=== PATIENT | male | born 1960 | race Caucasian/White ===

== ENCOUNTER → 2019-10-07 06:31 | Day surgery (SDC) | payer BC, SELFPAY | PROVIDERS: Visit Provider Surgery | DX: Z12.11 Encounter for screening for malignant neoplasm of colon (principal); D12.8 Benign neoplasm of rectum | CPT/HCPCS: 45380; 812; 88305; J2704; J7120 ==

== ENCOUNTER 2019-12-03 10:27 | Outpatient (CLI) | payer BC, SELFPAY ==
--- NOTE | ~2019-12-03 | XR_ITS ---
EXAMINATION: XR shoulder RT min 2V DATE: 12/03/2019 10:50 INDICATION: Right shoulder pain. TECHNIQUE: 4 views of right shoulder were obtained. COMPARISON: Chest 2 views 08/14/2019 FINDINGS: Bone alignment is normal. No fracture. There is mild osteoarthritis of glenohumeral joint a nd acromioclavicular joint. Calcified right lung nodules and calcified right hilar lymph nodes are co nsistent with old granulomatous disease. IMPRESSION: 1. Mild polyarticular osteoarthritis. Reviewed, dictated and finalized at location A. ECTION WARDEN
== END 2019-12-03 10:28 | disposition home or self-care (01) ==
LOC: CHSIMG 10:29
PROVIDERS: PCP Internal Medicine; Visit Provider Internal Medicine
DX: M25.511 Pain in right shoulder (principal)
CPT/HCPCS: 73030

== ENCOUNTER 2020-02-11 08:36 | Outpatient (CLI) | payer BC, SELFPAY ==
[2020-02-11 08:53] LABS: Add Urine Microscopic? YES; Appearance Urine Clear (Clear); Basophils Absolute Auto 0.07 K/mm3 (0.00-0.10); Basophils Percent Auto 1.1 % (0.0-1.0); Bilirubin Urine Negative (Negative); Blood Urine Negative (Negative); Color Urine Yellow (Yellow); Eosinophils Absolute Auto 0.08 K/mm3 (0.02-0.50); Eosinophils Percent Auto 1.3 % (1.0-6.0); Glucose Urine UA Negative (Negative); Hematocrit 45.2 % (40.0-54.0); Hemoglobin 15.3 g/dL (14.0-18.0); Immature Granulocyte Absolute 0.04 K/mm3 (0.00-0.00); Immature Granulocyte Percent A 0.6 % (0.0-0.0); Ketones Urine Negative (Negative); Leukocyte Esterase Ur Negative LEU/UL (Negative); Lymphocytes Absolute Auto 2.24 K/mm3 (1.10-4.50); Lymphocytes Percent Auto 35.1 % (18.0-42.0); Mean Corpuscular HGB Conc 33.8 g/dL (32.0-36.0); Mean Corpuscular Hemoglobin 29.9 pg (27.0-31.0); Mean Corpuscular Volume 88.3 fL (78.0-102.0); Mean Platelet Volume 11.9 fl (8.7-11.0); Monocytes Absolute Auto 0.62 K/mm3 (0.10-0.90); Monocytes Percent Auto 9.7 % (2.0-11.0); Neutrophils Absolute Auto 3.3 K/mm3 (1.7-7.2); Neutrophils Percent Auto 52.2 % (50.0-70.0); Nitrate Urine Negative (Negative); Platelet Count Result 226 K/mm3 (150-420); Protein Urine Negative (Negative); Red Blood Count 5.12 M/mm3 (4.70-6.10); Red Cell Distribution Width 12.8 % (11.6-14.4); White Blood Count 6.4 K/mm3 (4.8-10.8); pH Urine 6.5 (5.0-8.0)
[2020-02-11 08:57] LABS: RBC Urine 0-2 /hpf (0-2); WBC Urine 0-3 /hpf (0-3)
[2020-02-11 08:58] LABS: Bacteria Urine Trace /hpf; Mucus Urine Moderate /lpf
[2020-02-11 09:02] LABS: Hemoglobin A1C 5.8 % (<5.7)
[2020-02-11 09:03] LABS: MALB Creatinine Ratio 3.9 mg/g (0-30); Microalbumin Urine Random 10.5 mg/L
[2020-02-11 10:08] LABS: Alanine Aminotransferase 36 U/L (16-63); Albumin Level 3.8 g/dL (3.4-5.0); Alkaline Phosphatase 57 U/L (46-116); Anion Gap 12.4 mmol/L (7-16); Aspartate Amino Transferase 21 U/L (15-37); Bilirubin,Total 0.8 mg/dL (0.00-1.00); Blood Urea Nitrogen 17 mg/dL (7-18); Calcium 9.2 mg/dL (8.5-10.1); Carbon Dioxide 31 mmol/L (21-32); Chloride 104 mmol/L (98-108); Cholesterol 136 mg/dL (0-200); Creatine Kinase 112 U/L (39-308); Estimated Glomerular Filt Rate > 60; Glucose 86 mg/dL (70-99); HDL Direct 28 mg/dL (40-60); LDL Cholesterol Calculated 88 mg/dL (<130); Osmolality Calculated 296 mOsm/kg (285-295); Potassium 4.4 mmol/L (3.5-5.1); Prostate Specific Antigen 1.6 ng/mL (< OR = 4.0); Sodium 143 mmol/L (136-145); Total Protein 7.4 g/dL (6.4-8.2); Triglycerides 99 mg/dL (0-150); Uric Acid 7.2 mg/dL (3.5-7.2)
== END 2020-02-11 08:37 | disposition home or self-care (01) ==
PROVIDERS: PCP Internal Medicine; Visit Provider Internal Medicine
DX: Z00.00 Encounter for general adult medical examination without abnormal findings (principal); Z12.5 Encounter for screening for malignant neoplasm of prostate; R73.01 Impaired fasting glucose; E78.5 Hyperlipidemia, unspecified; E79.0 Hyperuricemia without signs of inflammatory arthritis and tophaceous disease
CPT/HCPCS: 36415; 80053; 80061; 81001; 82043; 82550; 83036; 84153; 84550; 85025; G0103

== ENCOUNTER 2020-02-26 10:10 | Outpatient (CLI) | payer BC, SELFPAY ==
--- NOTE | ~2020-02-26 | MR_ITS ---
EXAMINATION: MR shoulder RT wo con DATE: 02/26/2020 11:41 INDICATION: Right shoulder pain. TECHNIQUE: Magnetic resonance imaging (MRI) of the right shoulder was performed without intravenous c ontrast. Sequences included axial PD-weighted FS FSE, coronal oblique PD-weighted FS FSE and T2-weigh anisa FS FSE, and sagittal oblique T2-weighted FS FSE and T1-weighted FSE. COMPARISON: Right shoulder radiographs 12/03/2019 FINDINGS: Coracoacromial arch: The acromion undersurface is curved in morphology (type II). There is mild acromioclavicular joint os teoarthritis. No subacromial/subdeltoid bursitis. Rotator cuff: There is moderate tendinopathy of the conjoined portion of the supraspinatus and infraspinatus tendon s. Teres minor tendon is normal. There is mild subscapularis tendinopathy. There is no asymmetric fat ty atrophy of the rotator cuff muscle bellies. Biceps tendon and glenoid labrum: Biceps tendon is in bicipital groove. There is moderate intra-articular biceps tendinopathy. There is a degenerative tear of the superior labrum (type I SLAP tear). Fluid: There is no glenohumeral joint effusion. Bones/cartilage: There is deep partial thickness cartilage loss of humeral head superomedially. There is partial-thick ness cartilage loss of glenoid, worst at the central and posterior articular surface where there is m ild subchondral edema-like marrow signal intensity and cortical irregularity. IMPRESSION: 1. Moderate rotator cuff tendinopathy. No tear. 2. Moderate glenohumeral joint chondrosis. 3. Mild acromioclavicular joint osteoarthritis. 4. Moderate intra-articular biceps tendinopathy. Reviewed, dictated and finalized at location E.
== END 2020-02-26 10:11 | disposition home or self-care (01) ==
LOC: CHSIMG 10:10
PROVIDERS: PCP Internal Medicine; Visit Provider Internal Medicine
DX: M25.511 Pain in right shoulder (principal)
CPT/HCPCS: 73221

== ENCOUNTER 2020-03-27 14:45 | Outpatient (RCR) | payer BC, SELFPAY ==
--- NOTE | 2020-03-27 16:23 | PTOPEVAL ---
Thank you for referring Nir Giron to [facility]. Please review, sign, date and return this plan of care JENNIFER. I agree with and certify that the following plan of care is medically necessary. Referring Physician Date Admitting Provider: Attending Provider: Javier Goldstein MD Referring Provider: *PT Outpatient Evaluation Start: 03/27/20 14:46 Freq: Status: Active Protocol: Document 03/27/20 14:46 ARCELIA (Rec: 03/27/20 15:25 ARCELIA [email or web address]) Therapy Assessment Status Assessment Status Assessment Status Evaluation Evaluation Information Problem Diagnosis right shoulder pain/RC tendonitis Onset 12/26/19 Additional Evaluation Detail Quick DASH=24 Subjective Information Pt. reports that he woke up 3- Query Text:As Reported By Patient/ 4 months ago and could not Family lift his arm. He reports that he had MRI and revealed severe wear and tear in the shoulder. 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 He states that his pain is located in the lateral brachial region. He reports that pain is decreased since he recieved injection. Prior Level of Function Activity Level (Last 3 Months) Occupation heavy truck technician Hand Dominance Right Activity of Daily Living Ability Independent Indoor/Home Mobility Independent Community Mobility Independent Stairs Ability Independent Functional Cognition (Planning, Shopping Independent , Taking Medications) Cooking Yes Cleaning Yes Laundry Yes Shopping Yes Driving Yes Pain Assessment Pain Scale Pain Scale Used Numeric (1 - 10) Self Report Pain Assessment Right Shoulder(s) Reported Pain Level 10 Pain Description Aching Pain Frequency Intermittent Lowest Pain Intensity 0 Greatest Pain Intensity 10 Pain Score Pain Score 10: Self Report Upper Extremity Range of Motion General Upper Extremity Range of Motion Gross Upper Extremity Range of Motion right shoulder flexion AROM Comments 100 degrees right shoulder flexion PROM 110 degrees right shoulder ER PROM
== END 2020-03-27 23:59 | disposition home or self-care (01) ==
LOC: CHSPT 14:45
PROVIDERS: PCP Internal Medicine; Visit Provider Internal Medicine
DX: M25.511 Pain in right shoulder (principal)
CPT/HCPCS: 97014; 97110; 97161; G0283

== ENCOUNTER 2020-07-21 15:01 | Outpatient (CLI) | payer BC, SELFPAY ==
[2020-07-24 11:41] LABS: SARS-CoV-2 RNA PCR Negative
== END 2020-07-21 15:02 | disposition home or self-care (01) ==
LOC: CHSLAB 15:06
PROVIDERS: PCP Internal Medicine; Visit Provider Internal Medicine
DX: R05 Cough (principal); J02.9 Acute pharyngitis, unspecified; Z20.828 Contact with and (suspected) exposure to other viral communicable diseases
CPT/HCPCS: 87635; C9803; U0003

== ENCOUNTER 2020-08-30 08:46 | Outpatient (CLI) | payer BC, SELFPAY ==
[2020-08-30 09:36] LABS: SARS-CoV-2 Ag Positive (Negative)
== END 2020-08-30 08:47 | disposition home or self-care (01) ==
LOC: CHSLAB 08:48
PROVIDERS: PCP Internal Medicine; Visit Provider Internal Medicine
DX: U07.1 COVID-19 (principal); R50.9 Fever, unspecified; R05 Cough
CPT/HCPCS: 87426

== ENCOUNTER 2020-10-03 09:04 | Outpatient (CLI) | payer BC, SELFPAY ==
[2020-10-03 09:17] LABS: Add Urine Microscopic? NO; Appearance Urine Clear (Clear); Basophils Absolute Auto 0.04 K/mm3 (0.00-0.10); Basophils Percent Auto 0.7 % (0.0-1.0); Bilirubin Urine Negative (Negative); Blood Urine Negative (Negative); Color Urine Yellow (Yellow); Eosinophils Absolute Auto 0.09 K/mm3 (0.02-0.50); Eosinophils Percent Auto 1.5 % (1.0-6.0); Glucose Urine UA Negative (Negative); Hematocrit 44.6 % (40.0-54.0); Hemoglobin 14.5 g/dL (14.0-18.0); Immature Granulocyte Absolute 0.04 K/mm3 (0.00-0.00); Immature Granulocyte Percent A 0.7 % (0.0-0.0); Ketones Urine Negative (Negative); Leukocyte Esterase Ur Negative LEU/UL (Negative); Lymphocytes Absolute Auto 1.92 K/mm3 (1.10-4.50); Lymphocytes Percent Auto 32.2 % (18.0-42.0); Mean Corpuscular HGB Conc 32.5 g/dL (32.0-36.0); Mean Corpuscular Volume 89.2 fL (78.0-102.0); Mean Platelet Volume 11.4 fl (8.7-11.0); Monocytes Absolute Auto 0.61 K/mm3 (0.10-0.90); Monocytes Percent Auto 10.2 % (2.0-11.0); Neutrophils Absolute Auto 3.3 K/mm3 (1.7-7.2); Neutrophils Percent Auto 54.7 % (50.0-70.0); Nitrate Urine Negative (Negative); Platelet Count Result 218 K/mm3 (150-420); Protein Urine Negative (Negative); Red Cell Distribution Width 12.9 % (11.6-14.4); Specific Grav Ur >= 1.030 (1.010-1.020); pH Urine 5.5 (5.0-8.0)
[2020-10-03 09:40] LABS: Hemoglobin A1C 5.6 % (<5.7)
[2020-10-03 09:56] LABS: Alanine Aminotransferase 33 U/L (16-63); Albumin Level 3.5 g/dL (3.4-5.0); Alkaline Phosphatase 63 U/L (46-116); Anion Gap 7 mmol/L (8-16); Aspartate Amino Transferase 18 U/L (15-37); Bilirubin,Total 0.3 mg/dL (0.00-1.00); Blood Urea Nitrogen 18 mg/dL (7-18); Calcium 8.7 mg/dL (8.5-10.1); Carbon Dioxide 28 mmol/L (21-32); Chloride 104 mmol/L (98-108); Cholesterol 151 mg/dL (0-200); Creatine Kinase 137 U/L (39-308); Estimated Glomerular Filt Rate > 60; Glucose 102 mg/dL (70-99); HDL Direct 27 mg/dL (40-60); LDL Cholesterol Calculated 79 mg/dL (<130); Osmolality Calculated 289 mOsm/kg (285-295); Potassium 4.5 mmol/L (3.5-5.1); Sodium 139 mmol/L (136-145); Total Protein 7.4 g/dL (6.4-8.2); Triglycerides 225 mg/dL (0-150)
== END 2020-10-03 09:05 | disposition home or self-care (01) ==
LOC: CHSLAB 09:06
PROVIDERS: PCP Internal Medicine; Visit Provider Internal Medicine
DX: E78.5 Hyperlipidemia, unspecified (principal); I10 Essential (primary) hypertension; E79.0 Hyperuricemia without signs of inflammatory arthritis and tophaceous disease; R73.01 Impaired fasting glucose
CPT/HCPCS: 36415; 80053; 80061; 81003; 82550; 83036; 85025

== ENCOUNTER 2021-03-24 09:52 | Outpatient (CLI) | payer BC, SELFPAY ==
[2021-03-24 10:07] LABS: Add Urine Microscopic? NO; Appearance Urine Clear (Clear); Bilirubin Urine Negative (Negative); Blood Urine Negative (Negative); Color Urine Yellow (Yellow); Glucose Urine UA Negative (Negative); Ketones Urine Negative (Negative); Leukocyte Esterase Ur Negative (Negative); Nitrate Urine Negative (Negative); Protein Urine Negative (Negative); Specific Grav Ur >= 1.030 (1.010-1.020); Urobilinogen Urine 0.2 mg/dL (0.2-1.0)
[2021-03-24 10:47] LABS: Hemoglobin A1C 5.8 % (<5.7)
[2021-03-24 11:31] LABS: Alanine Aminotransferase 33 U/L (16-63); Albumin Level 3.6 g/dL (3.4-5.0); Alkaline Phosphatase 52 U/L (46-116); Anion Gap 10 mmol/L (8-16); Aspartate Amino Transferase 17 U/L (15-37); Bilirubin,Total 0.9 mg/dL (0.00-1.00); Blood Urea Nitrogen 18 mg/dL (7-18); Calcium 9.1 mg/dL (8.5-10.1); Carbon Dioxide 27 mmol/L (21-32); Chloride 104 mmol/L (98-108); Cholesterol 143 mg/dL (0-200); Creatine Kinase 100 U/L (39-308); Estimated Glomerular Filt Rate > 60; Glucose 93 mg/dL (70-99); HDL Direct 33 mg/dL (40-60); LDL Cholesterol Calculated 93 mg/dL (<130); Osmolality Calculated 293 mOsm/kg (285-295); Potassium 4.6 mmol/L (3.5-5.1); Prostate Specific Antigen 1.2 ng/mL (< OR = 4.0); Sodium 141 mmol/L (136-145); Total Protein 7.4 g/dL (6.4-8.2); Triglycerides 85 mg/dL (0-150)
== END 2021-03-24 09:53 | disposition home or self-care (01) ==
LOC: CHSLAB 09:55
PROVIDERS: PCP Internal Medicine; Visit Provider Internal Medicine
DX: E78.2 Mixed hyperlipidemia (principal); I10 Essential (primary) hypertension; R73.01 Impaired fasting glucose; Z12.5 Encounter for screening for malignant neoplasm of prostate
CPT/HCPCS: 36415; 80053; 80061; 81003; 82550; 83036; 84153; G0103

== ENCOUNTER 2021-10-13 08:10 | Outpatient (CLI) | payer BC, SELFPAY ==
[2021-10-13 08:29] LABS: Add Urine Microscopic? NO; Appearance Urine Clear (Clear); Bilirubin Urine Negative (Negative); Blood Urine Negative (Negative); Color Urine Yellow (Yellow); Glucose Urine UA Negative (Negative); Ketones Urine Negative (Negative); Leukocyte Esterase Ur Negative (Negative); Nitrate Urine Negative (Negative); Protein Urine Negative (Negative); Urobilinogen Urine 0.2 mg/dL (0.2-1.0); pH Urine 6.5 (5.0-8.0)
[2021-10-13 09:13] LABS: Alanine Aminotransferase 38 U/L (16-63); Albumin Level 3.6 g/dL (3.4-5.0); Alkaline Phosphatase 54 U/L (46-116); Anion Gap 8 mmol/L (8-16); Aspartate Amino Transferase 21 U/L (15-37); Blood Urea Nitrogen 9 mg/dL (7-18); Calcium 9.1 mg/dL (8.5-10.1); Carbon Dioxide 30 mmol/L (21-32); Chloride 103 mmol/L (98-108); Cholesterol 132 mg/dL (0-200); Creatine Kinase 123 U/L (39-308); Estimated Glomerular Filt Rate > 60; Glucose 92 mg/dL (70-99); HDL Direct 32 mg/dL (40-60); LDL Cholesterol Calculated 84 mg/dL (<130); Osmolality Calculated 290 mOsm/kg (285-295); Potassium 4.6 mmol/L (3.5-5.1); Sodium 141 mmol/L (136-145); Total Protein 7.4 g/dL (6.4-8.2); Triglycerides 81 mg/dL (0-150)
[2021-10-13 09:15] LABS: Hemoglobin A1C 5.7 % (<5.7)
== END 2021-10-13 08:11 | disposition home or self-care (01) ==
LOC: CHSLAB 08:13
PROVIDERS: PCP Internal Medicine; Visit Provider Internal Medicine
DX: E78.2 Mixed hyperlipidemia (principal); I10 Essential (primary) hypertension; R73.01 Impaired fasting glucose
CPT/HCPCS: 36415; 80053; 80061; 81003; 82550; 83036

== ENCOUNTER 2022-02-24 21:18 | Emergency (ER) | payer BC, SELFPAY ==
--- NOTE | ~2022-02-24 | XR_ITS ---
EXAMINATION: XR chest 1V portable DATE: 02/24/2022 22:00 INDICATION: Chest pain. Left arm pain. TECHNIQUE: A single frontal view of the chest was obtained. COMPARISON: Chest 2 views 08/14/2019 FINDINGS: Calcified right lung nodules and calcified right hilar lymph nodes are consistent with old granulomatous disease. No pleural effusion or pneumothorax. The heart size is normal. IMPRESSION: 1. No acute cardiopulmonary disease. Reviewed, dictated and finalized at location A.
[2022-02-24 21:21] VITALS: BP 175/104; PULSE 64; RESP 26; TEMP 36.6; O2SAT 99
--- NOTE | 2022-02-24 21:21 | ECG_ITS ---
Measurements Intervals [place] Rate: 63 P: 50 NJ: 196 QRS: -9 QRSD: 126 T: 76 QT: 424 QTc: 435 Interpretive Statements SINUS RHYTHM SUBTLE ST ELEVATION IN INFERIOR LEADS- CONSIDER ACUTE INJURY SUBLE ST ELEVATION IN ANTEROLATERAL LEADS- CONSIDER ACUTE INJURY BASELINE ARTIFACT- I, II, III, AVR, AVL, AVF, V2, V6 ABNORMAL ECG Electronically Signed On 02-25-2022 8:06:02 CDT by William Samayoa D.O.
[2022-02-24 21:30] VITALS: BP 165/96; PULSE 65; RESP 21; O2SAT 100
--- NOTE | 2022-02-24 21:34 | ED.CHESTPAIN ---
HPI - Chest Pain General Stated Complaint: sweating, chest/arm pain Time Seen by Provider: 02/24/22 21:25 Source: patient History of Present Illness HPI narrative: smoke. 61-year-old male patient arrives to ER accompanied by his with complaints of chest pain that started less than 30 minutes prior to arrival here. Patient states that he had a sedentary day-to-day and started having profuse sweating and needed to have a bowel movement and then experienced pain in the left chest that radiated down the arm. No significant shortness of breath is reported. Patient denies any pain going into neck or jaw or the back. Patient denies any nausea or vomiting. Patient has a significant past medical history of hypertension. He does not Smoke or have any history of known hyperlipidemia. He is not sure about his family history except that his sister recently had MRI needed some stents. Patient is COVID vaccinated. Denies any recent exposure Risk Factors Coronary artery disease risk factors: hypertension Review of Systems Review of Systems: All systems reviewed & are unremarkable except as noted in HPI and below Constitutional: Constitutional: Reports no additional constitutional complaints Cardiovascular: Cardiovascular: Reports chest pain, Denies rapid heart rate and Denies slow heart rate Respiratory: Respiratory: Denies chest congestion, Denies cough, Denies dyspnea and Denies wheezing Gastrointestinal: Gastrointestinal: Denies abdominal pain, Denies nausea and Denies vomiting PMFSH Past Medical History Medical History Hypertension Exam Narrative: Alert male patient who is awake and anxious. He describes his pain at the time of arrival was 10 and now it is down to 7/10 Vital signs on arrival showed a blood pressure of 175/104 and heart rate of 64. SpO2 99% on room air. His current blood pressure is 138/80 and heart rate is 60 beats per minute and SpO2 is 95% and patient is on 2 L of oxygen via nasal cannula. HEENT: normocephalic. Ear nose throat is unremarkable at this time. Neck is supple. No JVD Chest wall is nontender. Breath sounds are audible bilaterally. Heart tones are regular. Abdomen is obese and soft and nontender. Extremities are atraumatic. Patient has no pedal edema. Skin is warm and dry and color is normal. Neurologic exam is grossly normal. Patient is anxious and thought process is normal. Course Course Emergency Course: An EKG obtained confirms an inferior wall MO. Patient has been given 4 baby aspirin tablets orally and as STEMI protocol has been initiated. Patient has also received pantoprazole, nitroglycerin and 2 mg of morphine sulfate for pain. Heparin protocol has been initiated. Patient is discussed with Dr. Bang at 9:37 p.m. and [facility] has been notified to activate STEMI protocol. Arch is expected to be here to transfer the patient to [facility]. [address] here and about transfer the patient over to [facility]. Vital Signs Vital signs: BP 138/80. HR 58. RR22 and SPO2 98% Transfer Transfered to: [facility] Transportation: [facility] and [facility] Transfer rationale: STEMI Inferior Wall MO Accepting physician: DR Bang Transfer comments: STEMI protocol activated MDM - Chest Pain MDM Narrative Medical decision making narrative: Acute Inferior Wall MO Differential Diagnosis Differential diagnosis: Likely stable angina, unstable angina pectoris, atypical chest pain, st elevation myocardial infarction and chest pain Discharge Plan Discharge Clinical Impression: Acute MO, inferior wall, initial episode of care Patient Disposition: Acute Care Hospital Condition: Stable Follow-up/Referrals: Javier Goldstein MD [Primary Care Provider] -
[2022-02-24 21:40] VITALS: PULSE 64; RESP 21; O2SAT 97
[2022-02-24 21:50] VITALS: BP 138/80; PULSE 58; PULSE 59; RESP 16; RESP 18; O2SAT 95; O2SAT 98
[2022-02-24 21:52] LABS: Basophils Percent Auto 0.9 % (0.0-1.0); Eosinophils Absolute Auto 0.16 K/mm3 (0.02-0.50); Eosinophils Percent Auto 1.5 % (1.0-6.0); Hematocrit 45.4 % (40.0-54.0); Hemoglobin 15.1 g/dL (14.0-18.0); Immature Granulocyte Absolute 0.09 K/mm3 (0.00-0.00); Immature Granulocyte Percent A 0.8 % (0.0-0.0); Lymphocytes Absolute Auto 4.35 K/mm3 (1.10-4.50); Lymphocytes Percent Auto 40.7 % (18.0-42.0); Mean Corpuscular HGB Conc 33.3 g/dL (32.0-36.0); Mean Corpuscular Hemoglobin 29.5 pg (27.0-31.0); Mean Corpuscular Volume 88.8 fL (78.0-102.0); Mean Platelet Volume 11.6 fl (8.7-11.0); Monocytes Absolute Auto 1.23 K/mm3 (0.10-0.90); Monocytes Percent Auto 11.5 % (2.0-11.0); Neutrophils Absolute Auto 4.8 K/mm3 (1.7-7.2); Neutrophils Percent Auto 44.6 % (50.0-70.0); Platelet Count Result 245 K/mm3 (150-420); Red Blood Count 5.11 M/mm3 (4.70-6.10); Red Cell Distribution Width 12.8 % (11.6-14.4); White Blood Count 10.7 K/mm3 (4.8-10.8)
[2022-02-24 22:01] LABS: Partial Thromboplastin Time 25.7 SEC (23.90-30.70); Prothrombin Time 10.9 Seconds (9.50-12.10)
[2022-02-24 22:04] LABS: SARS-CoV-2 Ag Negative (Negative)
[2022-02-24 22:12] LABS: Alanine Aminotransferase 42 U/L (16-63); Albumin Level 3.7 g/dL (3.4-5.0); Alkaline Phosphatase 69 U/L (46-116); Anion Gap 7 mmol/L (8-16); Aspartate Amino Transferase 11 U/L (15-37); Bilirubin,Total 0.5 mg/dL (0.00-1.00); Blood Urea Nitrogen 17 mg/dL (7-18); Calcium 8.9 mg/dL (8.5-10.1); Carbon Dioxide 28 mmol/L (21-32); Chloride 101 mmol/L (98-108); Creatine Kinase 97 U/L (39-308); Estimated Glomerular Filt Rate 59; Glucose 111 mg/dL (70-99); Magnesium 2.1 mg/dL (1.8-2.4); Osmolality Calculated 284 mOsm/kg (285-295); Potassium 3.6 mmol/L (3.5-5.1); Sodium 136 mmol/L (136-145); Total Protein 7.9 g/dL (6.4-8.2); Troponin I 37.2 ng/L (0.00-60.4)
--- NOTE | 2022-02-24 22:44 | PC.NURSE ---
For medications and times see STAT heart paperwork.
== END 2022-02-24 22:07 | disposition short-term general hospital (02) ==
PROVIDERS: Emergency Provider Emergency Medicine; PCP Internal Medicine
DX: I21.19 ST elevation (STEMI) myocardial infarction involving other coronary artery of inferior wall (principal); I10 Essential (primary) hypertension; Z20.822 Contact with and (suspected) exposure to COVID-19
CPT/HCPCS: 36415; 71045; 80053; 82550; 82553; 83735; 84484; 85025; 85610; 85730; 87426; 93005; 96374; 99285; A9270; C9803; J1644; J2270

== ENCOUNTER 2022-02-24 23:18 | Inpatient (IN) | payer BC, SELFPAY ==
[2022-02-24 23:17] VITALS: BMI 37.8
--- NOTE | 2022-02-24 23:26 | P.PCNCC_ITS ---
Cardiac Cath Procedure Note Date of procedure:: 02/24/22 Performing physician:: Tiago Rios MD Indication:: chest pain/ST-elevation OH Brief clinical history:: this is a 61-year-old patient with hypertension and no prior history of cardiac disease who is transfer from an outlying emergency room where ST segment elevation OH was declared by ECG. Procedure Procedure performed:: Emergency coronary angiogram left ventriculogram Sedation/Medication given:: no additional sedation Access site:: right femoral artery Estimated blood loss:: 20 cc Procedure note:: patient was brought to the cardiac cardiac cath lab radiology technologist in the emergent setting described above. He was extraordinarily anxious somewhat agitated. The right femoral triangle was prepped and draped in usual fashion anesthesia was given 1% lidocaine infiltrated locally using the modified Seldinger technique a 6 Mongolian sheath was placed into the femoral artery. I then used a 5 Mongolian FL4 catheter to engage and inject the left coronary artery in multiple projections. I then used a 5 Mongolian JR4 catheter to engage and inject the right coronary artery. The cineangiograms were then reviewed. No coronary lesions were identified. I then used a 5 Mongolian angled pigtail catheter to measure left- sided hemodynamics and to inject LV g in the 30 degree [place] projection. Following this the case was terminated and the patient was taken to the ICU for post cath recovery. The sheath was sutured in event position it will be with direct manual pressure in the intensive care unit. Findings:: Hemodynamics: Central aortic pressure is 1 30 over 60 left ventricle 130/0 end-diastolic 16. No gradient was seen a pullback across the aortic valve. Left ventricle: The apical portion of the inferior wall appears to be akinetic the remainder of the ventricle contracts well the global ejection fraction is visually estimated to be 45-50%. The left main coronary is widely patent the left anterior descending is moderate caliber artery proximally after the midportion down to the apex it becomes very small in caliber but of entire vessel appears to be angiographically normal. Circumflex system is moderate in caliber giving rise to 1 large marginal branch. The circumflex is angiographically unremarkable. The right coronary artery is large in caliber and dominant to the posterior circulation the right coronary artery is smooth and angiographically free of disease. Conclusion:: 1. Right coronary dominant circulation with no angiographic abnormalities 2. inferoapical akinesis with chest pain and inferolateral ST segment elevations suggestive of spasm induced myocardial infarction. Overall ejection fraction as described above was 45-50%. Tiago Rios MD FACC
--- NOTE | 2022-02-24 23:34 | P.HP_ITS ---
H&P: HPI History of Present Illness Date/Time: 02/24/22 23:34 Chief Complaint: Chest pain Narrative: this is a 61-year-old patient with prior history of hypertension who is transferred here emergently from [place] is a emergency room with declared inferior wall ST-elevation CT. He apparently was working in his kitchen at home and began to experience chest pain while he was chopping some vegetables at about 9:00 a.m. this evening. He went to the emergency room [place] where his ECG was felt to show evidence of a inferior wall ST-elevation CT for that reason was transferred [facility] emergently. He has seen in the laboratory technical specialist is being prepared for emergent angiography. The patient is extraordinarily anxious regarding this procedure. he has no prior history of heart disease from what I am told there was no time to obtain any additional history than this during this emergency Review of Systems Review of Systems: ROS unobtainable: Yes unobtainable due to medical condition PMFSH Past Medical History Medical History Hypertension Meds Home Medications and Allergies Home Medications Medication Instructions Recorded Confirmed Type aspirin [Aspirin Child] 81 mg PO HS 02/24/22 02/24/22 History metoprolol tartrate 100 mg PO DAILY 02/24/22 02/24/22 History Allergies Allergy/AdvReac Type Severity Reaction Status Date / Time No Known Allergies Allergy Verified 02/24/22 22:48 Exam Const: General: in distress and uncomfortable Other: extremely anxious overweight 61-year-old man HENMT: Mouth: Yes moist mucous membranes Eyes: General: appearance normal, both eyes and all related structures Neck: Neck: supple Resp: Effort & Inspection: normal respiratory effort Auscultation: clear to auscultation bilaterally Cardio: Rate: regular rate Rhythm: regular rhythm Other: PMI not palpable no gallop no murmur GI: GI Palp: Yes Soft to palpation Auscultation: normal bowel sounds Skin: General skin exam: normal color Neuro: Cognition (Neuro): normal cognition Extrem: General: normal to inspection Assessment and Plan Additional Plan 61-year-old man with hypertension was experiencing chest pain which has been alleviated with the treatment he received so far which includes aspirin, heparin and IV nitroglycerin. He not experience chest pain any longer. He being a brought to the laboratory technical specialist for emergency angiography in the setting of inferior ST- elevation. Tiago Rios MD [facility]
--- NOTE | 2022-02-24 23:35 | ECG_ITS ---
Measurements Intervals [place] Rate: 56 P: 24 MS: 190 QRS: -35 QRSD: 113 T: 62 QT: 442 QTc: 430 Interpretive Statements SINUS BRADYCARDIA LEFT AXIS DEVIATION MINIMAL Q WAVES- HIGH LATERAL LEADS ST ELEVATION IN INFERIOR LEADS- CONSIDER ACUTE INJURY ST ELEVATION IN ANTEROLATERAL LEADS- CONSIDER ACUTE INJURY ABNORMAL ECG Electronically Signed On 02-25-2022 8:03:54 CDT by William Samayoa D.O.
--- NOTE | 2022-02-24 23:35 | ADMGEN ---
This patient, Nir Giron, was admitted to Intensive Care Unit-4. Patient/family oriented to hospital policies and general routines including ID bracelet, bed and alarms, visiting hours, pain management, procedures, bathroom and other care routines, personal items, smoking policy, room service/diet, and visiting hours. Information on how to activate the Rapid Response Team has been discussed. Patient/Family are encouraged to report perceived risks to care and to ask questions if they do not understand what they are told or what they should do.
[2022-02-25] VITALS (19 sets, daily range): BP systolic 109–198; BP diastolic 63–92; PULSE 51–87; RESP 14–19; TEMP 36.5–36.8; O2SAT 93–100
[2022-02-25 00:28] LABS: Basophils Absolute Auto 0.1 K/mm3 (0.0-0.1); Basophils Percent Auto 0.7 % (0.2-1.2); Eosinophils Absolute Auto 0.1 K/mm3 (0-0.3); Eosinophils Percent Auto 1.1 % (0-4.4); Hematocrit 43.1 % (42.0-52.0); Hemoglobin 14.2 g/dL (14.0-18.0); Immature Granulocyte Absolute 0.05 K/mm3 (0.00-0.031); Immature Granulocyte Percent A 0.6 % (0-0.5); Lymphocytes Absolute Auto 1.57 K/mm3 (0.9-3.2); Lymphocytes Percent Auto 18.4 % (18.3-44.2); Mean Corpuscular HGB Conc 32.9 g/dl (32-36); Mean Corpuscular Hemoglobin 29.4 pg (26-34); Mean Corpuscular Volume 89.2 fl (80-100); Mean Platelet Volume 11.5 fl (7.4-10.4); Monocytes Absolute Auto 0.8 K/mm3 (0.1-0.6); Monocytes Percent Auto 9.2 % (2.6-8.5); Platelet Count Result 203 k/mm3 (150-375); Red Blood Count 4.83 M/mm3 (4.6-6.20); White Blood Count 8.6 K/mm3 (4.5-10.0)
[2022-02-25 00:37] LABS: Anion Gap 10 mmol/L (8-16); Blood Urea Nitrogen 18 mg/dL (9-20); Calcium 8.7 mg/dL (8.4-10.2); Carbon Dioxide 25 mmol/L (22-30); Chloride 101 mmol/L (98-107); Cholesterol 134 mg/dL (0-200); Estimated CRCL calculation 94 ml/min; Estimated Glomerular Filt Rate > 60; Glucose 118 mg/dL (65-110); HDL Direct 24 mg/dL; Potassium 4.3 mmol/L (3.4-5.0); Sodium 136 mmol/L (137-145); Triglycerides 201 mg/dL (<150)
[2022-02-25] MEDS: SODIUM CHLORIDE 0.9% IV 1,000 ML 125 ML IV CONT (00:39)
[2022-02-25] MEDS: NITROGLYCERIN OINTMENT 1 INCH DOSE TRANSDERM ×4 (00:40→23:53)
[2022-02-25 00:48] LABS: LDL Cholesterol Direct 78 mg/dL
[2022-02-25 00:49] LABS: INR 1.2; Prothrombin Time 14.3 Seconds (11.1-14.7)
[2022-02-25 00:56] LABS: Troponin I 0.658 ng/mL (0.000-0.034)
--- NOTE | 2022-02-25 05:11 | ECG_ITS ---
Measurements Intervals [place] Rate: 51 P: 21 TN: 220 QRS: -46 QRSD: 126 T: -1 QT: 455 QTc: 419 Interpretive Statements SINUS BRADYCARDIA WITH FIRST DEGREE AV BLOCK EARLY PRECORDIAL R/S TRANSITION LEFT ANTERIOR FASCICULAR BLOCK MINIMAL Q WAVES- LAT/HIGH LAT LEADS BORDERLINE T WAVE ABNORMALITY- INFERIOR LEADS ABNORMAL ECG Electronically Signed On 02-25-2022 9:42:17 CDT by William Samayoa D.O.
[2022-02-25] MEDS: ASPIRIN 81 MG CHEWABLE TABLET PO (07:17)
[2022-02-25] MEDS: ROSUVASTATIN 10 MG TABLET PO (08:03)
[2022-02-25] MEDS: LOSARTAN POTASSIUM 25 MG TABLET PO (08:03)
--- NOTE | 2022-02-25 12:20 | WPDCNINT ---
Assessment and Plan Assessment and plan (1) Chest pain: Code(s): R07.9 - Chest pain, unspecified Status: Acute Assessment and Plan: Patient presented to outside hospital in [place] with chest pain, radiating to left arm, along with diuresis. No shortness of breaths was mentioned. EKG showed acute inferior ST-elevation myocardial infarction -patient was transferred to [facility] for emergent Angiography -cardiac catheterization did not show any coronary disease, EF was 40-45% -manufacturing worker started could be a coronary spasm -patient is hemodynamically stable, bradycardic -manufacturing worker aware -continue rosuvastatin and aspirin (2) Hypertension: Code(s): I10 - Essential (primary) hypertension Status: Acute Assessment and Plan: Patient is on losartan, -metoprolol which will be held for bradycardia Additional Plan Discussed with patient updated with his condition and plan of care. Discussed with cardiology team, okay to transfer to medical floor with telemetry Code status: Full code Critical care time spent: 42 minutes This dictation may have been done utilizing a voice recognition system. Attempts have been made to correct errors. However, there may be uncorrected grammatical, spelling, and recognition errors present. Due to a high probability of clinically significant, life threatening deterioration, the patient required my highest level of preparedness to intervene emergently and I personally spent this critical care time directly and personally managing the patient. This critical care time included obtaining a history; examining the patient; pulse oximetry; ordering and review of studies; arranging urgent treatment with development of a management plan; evaluation of patient's response to treatment; frequent reassessment; and discussions with other providers. It was exclusive of separately billable procedures and treating other patients and teaching time. Please see Assessment and Plan section and the rest of the note for further information on patient assessment and treatment Grades 7 8 Tutor Consult Note Consult date: 02/25/22 Time Seen: 07:05 Reason for consult: Chest pain, STEMI HPI: Nir Giron is a 61 year old male past medical history of essential hypertension presented the outside hospital ER at [facility] on 02/24/2022 with complains of chest pain, radiated to the arm, diaphoresis. The pain started 30 minutes prior to arriving at the ER. Patient did not have any significant chest pain. EKG showed possible acute inferior myocardial injury and was transferred to [facility] emergently for Angiography. Patient was taken to the cardiac catheterization by his manufacturing worker, patient did not have any significant coronary disease, EF was 45-50%. Fire Coordinator presumed that this could be a coronary artery spasm. Patient was transfer the ICU for further management and monitoring Patient seen and examined this morning, denies any chest pain, shortness of breath, abdominal pain, nausea, vomiting. Patient is hemodynamically stable, bradycardic. Urine output has been adequate. No other issues overnight Review of Systems Review of Systems: All systems reviewed & are unremarkable except as noted in HPI and below PMFSH Past Medical History Medical History Hypertension Family History Family History (Updated 02/25/22 @ 00:10 by Adama Darling RN) Mother Congestive heart failure (CHF) Diabetes mellitus Hypertension Father Lung cancer Sibling Acute leukemia Coronary artery disease Social History Social History Smoking status: Former smoker Alcohol intake: never Substance use: never Spiritual care concerns: No Meds Home Medications and Allergies Home Medications Medication Instructions Recorded Confirmed Type aspirin [Aspirin Child] 81 mg P
--- NOTE | 2022-02-25 14:25 | PC.NURSE ---
This patient, Nir Giron, was transferred to [facility] on 02/25/22 at 1431. Personal belongings sent with patient. Report given to Melisa. Appropriate documentation sent with patient.
--- NOTE | 2022-02-25 14:29 | PC.NURSE ---
Patient transferred from ICU to Room 319 and is in stable condition. is at bedside. Vital signs are stable and patient is not in any distress..
--- NOTE | 2022-02-25 14:38 | PM.PNCARD ---
Progress Note: A&P Assessment and Plan (1) Chest pain: Code(s): R07.9 - Chest pain, unspecified Status: Acute Assessment and Plan: Presented with acute onset of chest pain. He had inferior ST elevations on ECG and was therefore taken emergently to the builder's labourer for coronary angiography. He had no angiographic abnormalities but did have inferoapical akinesis with EF 40-45%. These findings and presentation suggestive of spasm induced MT. He has been placed on medical therapy with ASA, statin, metoprolol. (2) Hypertension: Code(s): I10 - Essential (primary) hypertension Status: Acute Subjective Date/time seen: 02/25/22 14:38 Cardiology follow up for chest pain Feeling well this morning. Has not had any recurrence of chest pain following cath. No palpitations, shortness of breath. No ectopy or arrhythmias on telemetry. Talked to patient and his at length regarding angiogram findings and plan of care. Review of Systems Constitutional: Constitutional: Denies daytime sleepiness, Denies difficulty sleeping, Denies lethargy and Denies weakness Eyes: Eyes: Denies change in vision ENT: Reports Normal hearing present and Denies hearing loss Cardiovascular: Cardiovascular: Reports chest pain at rest, Denies irregular heart rhythm, Denies leg edema, Denies lightheadedness, Denies dyspnea and Denies dyspnea on exertion Respiratory: Respiratory: Denies dyspnea, Denies dyspnea on exertion and Denies wheezing Gastrointestinal: Gastrointestinal: Denies melena and Denies hematochezia Genitourinary: Genitourinary: Denies urinary frequency, Denies urinary hesitancy and Denies urinary urgency Musculoskeletal: Musculoskeletal: Denies back pain, Denies muscle cramps, Denies muscle weakness and Denies neck pain Integumentary/Breasts: Skin/Breast: Denies unusual bruising and Denies wounds Neurologic: Reports Normal hearing present, Denies Neuro-related abnormal movements and Denies Abnormal speech present Psychiatric: Psychiatric: Denies anxiety and Denies depression Endocrine: Endocrine: Denies excessive sweating, Denies fatigue and Denies palpitations Hematologic/Lymphatic: Hematologic/Lymphatic: Denies easy bleeding and Denies easy bruising Allergic/Immunologic: Allergic/Immunologic: Denies lip swelling, Denies throat swelling and Denies tongue swelling Exam Const: General: comfortable, no acute distress, alert and awake Other: HENMT: Head: normal to inspection Ears: hearing grossly normal bilaterally Face and sinus: normal facial exam Mouth: Yes moist mucous membranes Eyes: General: appearance normal, both eyes and all related structures Neck: Neck: supple Resp: Effort & Inspection: normal respiratory effort Auscultation: clear to auscultation bilaterally Cardio: Rate: regular rate Rhythm: regular rhythm Heart sounds: no murmurs Peripheral pulses: Peripheral pulses 2+ throughout GI: Auscultation: normal bowel sounds Skin: General skin exam: normal color Other: Right groin arterial access site free from bleeding, hematoma, bruit. Neuro: General: patient oriented x3 Cognition (Neuro): normal cognition Extrem: General: normal to inspection Psych: Appearance: grossly normal Mental Status: mental status grossly normal Objective Data Vital Signs Vital Signs: Vital Signs - 24 hr 02/25/22 00:00 02/25/22 00:03 02/25/22 00:06 Temperature 36.6 C Pulse Rate 56 L 55 L 87 Respiratory Rate 18 18 18 Blood Pressure 128/92 H 198/82 H Pulse Oximetry 98 93 93 02/25/22 01:00 02/25/22 01:35 02/25/22 02:00 Temperature 36.8 C 36.8 C Pulse Rate 52 L 56 L 56 L Respiratory Rate 18 15 18 Blood Pressure 110/67 120/67 111/67 Pulse Oximetry 95 96 100 02/25/22 05:11 02/25/22 05:12 02/25/22 06:00 Temperature 36.8 C 36.7 C Pulse Rate 56 L 55 L 53 L Respiratory Rate 16 18 Blood Pressure 113/78 117/71 Pulse Oximetry 98 98 02/25/22 07:00 02/25/22 08:00 02/25/22
[2022-02-26] VITALS: PULSE 62
--- NOTE | 2022-02-26 | ECHO_ITS ---
Patient Info Name: Nir Giron Age: 61 years : 1960 Gender: Male Ht: 73 in Wt: 284 lbs BSA: 2.62 m2 HR: 64 bpm BP: 129 / 83 mmHg Heart Rhythm: Sinus Rhythm Technical Quality: Fair Exam Date: 02/26/2022 2:19 PM Exam Location: [facility] Patient Status: Inpatient Admit Date: 02/24/2022 Staff Ordering Physician: Lupis Timmons Paper Sealer: Isela Anaya RDCS Attending Provider: Tiago Rios MD Referring Physician: Shanelle BECKFORD; Exam Type: CA echo doppler w bubble study Study Info Indications - stemi Complete two-dimentional, color flow and Doppler transthoracic echocardiogram is performed with agitated saline and with contrast to opacify the left ventricle and to improve the delineation of the left ventricle endocardial borders. Contrast/Agitated Saline Contrast/Ag. Saline: Definity Amount: 2.00 ml Administered By: Isela Anaya RDCS Existing IV Access: Yes IV Access Condition: patent with no signs of infiltration Contrast/Ag. Saline: Agitated Saline Amount: 20.00 ml Administered By: Sarah Knox RDCS Existing IV Access: Yes IV Access Condition: patent with no signs of infiltration Summary 1. Left ventricular chamber dimension is normal. 2. Left ventricular systolic function is normal, estimated at 60-65%. 3. There is mildly increased left ventricular wall thickness. 4. Left ventricular septal wall motion is normal. 5. The left ventricular diastolic function is normal. 6. Left atrial chamber dimension is moderately enlarged. 7. There is mild mitral valve regurgitation. 8. There is mild tricuspid valve regurgitation. 9. Mild pulmonary hypertension, estimated pulmonary arterial systolic pressure is 38 mmHg. Left Ventricle Left ventricular chamber dimension is normal. Left ventricular systolic function is normal, estimated at 60-65%. There is mildly increased left ventricular wall thickness. Left ventricular septal wall motion is normal. The left ventricular diastolic function is normal. Right Ventricle Right ventricular chamber dimension is normal. Right ventricular systolic function is normal. Left Atria Left atrial chamber dimension is moderately enlarged. Right Atria Right atrial chamber dimension is normal. Atrial Septum Intact interatrial septum visualized by color flow and agitated saline imaging. Aortic Valve The aortic valve is trileaflet. There is mild aortic valve sclerosis. There is no aortic valve stenosis. There is trace aortic valve regurgitation. Pulmonic Valve The pulmonic valve is normal. There is no pulmonic valve stenosis. There is trace pulmonic regurgitation. Mitral Valve The mitral valve has normal leaflets. There is no mitral valve stenosis. There is mild mitral valve regurgitation. Tricuspid Valve The tricuspid valve leaflets are normal. There is no significant tricuspid valve stenosis. There is mild tricuspid valve regurgitation. Mild pulmonary hypertension, estimated pulmonary arterial systolic pressure is 38 mmHg. Pericardium/Pleural The pericardium appears normal. There is no pericardial effusion. Inferior Vena Cava Normal inferior vena cava with <50% collapse upon inspiration consistent with elevated right atrial pressure, 10 mmHg. Aorta The aortic root size at the sinus of Valsalva is normal. Left Ventricular Outflow
[2022-02-26 04:00] VITALS: PULSE 59
[2022-02-26 06:00] VITALS: BP 129/83; PULSE 64; RESP 20; TEMP 36.1; O2SAT 98
[2022-02-26] MEDS: NITROGLYCERIN OINTMENT 1 INCH DOSE TRANSDERM (06:06)
--- NOTE | 2022-02-26 07:49 | PM.DS ---
DS: Admitting Diagnosis Discharge Date 02/26/2022 Admitting Diagnosis Chest pain DS: Discharge Diagnosis Discharge Diagnosis (1) Chest pain: Code(s): R07.9 - Chest pain, unspecified Status: Acute Assessment and Plan: Presented with acute onset of chest pain with inferior ST elevation on ECG. Taken emergently to the cardiac prosthetics lab technician for coronary angiogram. Coronary angiogram findings are as follows: 1.? Right coronary dominant circulation with no angiographic abnormalities 2. ? Inferolateral akinesis with chest pain and inferolateral ST segment elevations suggestive of spasm induced myocardial infarction.? Overall ejection fraction as described above was 45-50%. Started on ASA, statin and beta carina. Recommend Plavix for one month for the indication of spontaneous thrombus Echo with bubble study to check for PFO Close outpatient follow up (2) Hypertension: Code(s): I10 - Essential (primary) hypertension Status: Acute Assessment and Plan: At goal. DS: Summary Hospital Course Reason for hospitalization: Chest pain Hospital Course: Presented 02/24/2022 with c/o acute onset of chest pain. Inferior ST elevation noted on ECG. Taken emergently to the cardiac prosthetics lab technician for coronary angiogram. Coronary angiogram findings are as follows: 1.? Right coronary dominant circulation with no angiographic abnormalities 2. ? Inferolateral akinesis with chest pain and inferolateral ST segment elevations suggestive of spasm induced myocardial infarction.? Overall ejection fraction as described above was 45-50%. He was placed on medical therapy with ASA, plavix, statin, beta carina. Following his angiogram he did not have any further chest pain. He remained stable and is appropriate for hospital discharge today. Time Spent with Patient Time attestation: Total time spent providing and/or coordinating discharge services: 50 minutes Exam Const: General: comfortable, no acute distress, alert and awake Orientation/consciousness: patient oriented x3 Other: HENMT: Head: normal to inspection Ears: hearing grossly normal bilaterally Face and sinus: normal facial exam Mouth: Yes moist mucous membranes Eyes: General: appearance normal, both eyes and all related structures Neck: Neck: supple Resp: Effort & Inspection: normal respiratory effort Auscultation: clear to auscultation bilaterally Cardio: Rate: regular rate Rhythm: regular rhythm Heart sounds: no murmurs Peripheral pulses: Peripheral pulses 2+ throughout Other: GI: Auscultation: normal bowel sounds Skin: General skin exam: normal color Other: Right groin arterial access site free from bleeding, hematoma, bruit. Neuro: General: patient oriented x3 Cranial nerves: Yes Normal hearing present Cognition (Neuro): normal cognition Speech: No Abnormal speech present Extrem: General: normal to inspection Psych: Appearance: grossly normal Mental Status: mental status grossly normal Discharge Plan Discharge Attending physician on discharge: Deaneglo Paredes Consulting providers: Jose Turner Discharging Clinician: Lupis Timmons Patient Disposition: Home, Self-Care Activity: february shower Diet: heart healthy Discharge Instructions: [facility] [address] [place] [address] DISCHARGE INSTRUCTIONS - POST CARDIAC CATH Activity restrictions 1. No vickiein
[2022-02-26 08:00] VITALS: PULSE 65; RESP 18; O2SAT 96
[2022-02-26] MEDS: ASPIRIN 81 MG CHEWABLE TABLET PO (08:45)
[2022-02-26] MEDS: ROSUVASTATIN 10 MG TABLET PO (08:45)
[2022-02-26] MEDS: LOSARTAN POTASSIUM 25 MG TABLET PO (08:45)
[2022-02-26] MEDS: METOPROLOL TARTRATE 25 MG TABLET PO (08:45)
[2022-02-26 14:14] VITALS: BP 124/64; PULSE 65; RESP 18; TEMP 37.7; O2SAT 96
[2022-02-26] MEDS: PERFLUTREN LIPID MICROSPHERES 1.5 ML VIAL DILUTED TO 10 ML TOTAL VOLUME IV PUSH (14:58)
--- NOTE | 2022-02-26 14:59 | IVDEFINITY ---
Prior to administration of IV Definity the patient was educated on the risks and benefits of the imaging enhancing agent including potential adverse side effects. The patient verbalized understanding. Allergies were verified. No exclusion criteria were identified and at least one of the following inclusion criteria were met: 1) physician request, 2) patient technically difficult to image (per the [place] [employer] guidelines of two or more segments not discernable within the apical view), or 3) questionable left ventricular function. ?
== END 2022-02-26 17:35 | disposition home or self-care (01) | DRG 282 ==
LOC: ANHICU 02-25 05:55 → ANH3MEDSUR 02-26 12:22 → ANHICU 03-01 06:16
PROVIDERS: Admitting Provider Specialist; PCP Internal Medicine; Visit Provider Nurse Practitioner
PROC: 4A023N7 Measurement of Cardiac Sampling and Pressure, Left Heart, Percutaneous Approach (ICD-10-PCS; CPT 93452; principal; 2022-02-24 22:30)
DX: I21.19 ST elevation (STEMI) myocardial infarction involving other coronary artery of inferior wall (principal); I10 Essential (primary) hypertension
CPT/HCPCS: 36415; 80048; 80061; 84484; 85025; 85610; 85730; 93005; 93306; 93458; 96375; A9270; C1887; C1894; J1644; J7030; J7040; Q9957

== ENCOUNTER 2022-02-27 16:13 | Outpatient (CLI) | payer BC, SELFPAY ==
[2022-02-27 16:32] LABS: Basophils Absolute Auto 0.07 K/mm3 (0.00-0.10); Basophils Percent Auto 0.8 % (0.0-1.0); Eosinophils Absolute Auto 0.12 K/mm3 (0.02-0.50); Eosinophils Percent Auto 1.3 % (1.0-6.0); Hematocrit 43.3 % (40.0-54.0); Hemoglobin 14.5 g/dL (14.0-18.0); Immature Granulocyte Absolute 0.06 K/mm3 (0.00-0.00); Immature Granulocyte Percent A 0.6 % (0.0-0.0); Lymphocytes Absolute Auto 2.09 K/mm3 (1.10-4.50); Lymphocytes Percent Auto 22.4 % (18.0-42.0); Mean Corpuscular HGB Conc 33.5 g/dL (32.0-36.0); Mean Corpuscular Hemoglobin 29.4 pg (27.0-31.0); Mean Corpuscular Volume 87.7 fL (78.0-102.0); Mean Platelet Volume 11.6 fl (8.7-11.0); Monocytes Absolute Auto 1.16 K/mm3 (0.10-0.90); Monocytes Percent Auto 12.5 % (2.0-11.0); Neutrophils Absolute Auto 5.8 K/mm3 (1.7-7.2); Neutrophils Percent Auto 62.4 % (50.0-70.0); Platelet Count Result 208 K/mm3 (150-420); Red Blood Count 4.94 M/mm3 (4.70-6.10); Red Cell Distribution Width 12.5 % (11.6-14.4); White Blood Count 9.3 K/mm3 (4.8-10.8)
[2022-02-27 16:49] LABS: Alanine Aminotransferase 35 U/L (16-63); Albumin Level 3.6 g/dL (3.4-5.0); Alkaline Phosphatase 59 U/L (46-116); Anion Gap 7 mmol/L (8-16); Aspartate Amino Transferase 39 U/L (15-37); Bilirubin,Total 1.5 mg/dL (0.00-1.00); Blood Urea Nitrogen 11 mg/dL (7-18); CRP 1.3 mg/dL (0.0-0.9); Calcium 8.9 mg/dL (8.5-10.1); Carbon Dioxide 27 mmol/L (21-32); Chloride 102 mmol/L (98-108); Estimated Glomerular Filt Rate > 60; Glucose 125 mg/dL (70-99); Osmolality Calculated 282 mOsm/kg (285-295); Sodium 136 mmol/L (136-145); Total Protein 7.5 g/dL (6.4-8.2); Uric Acid 6.1 mg/dL (3.5-7.2)
[2022-02-27 17:22] LABS: Erythrocyte Sedimentation Rate 12 mm/hr (0-20)
== END 2022-02-27 16:14 | disposition home or self-care (01) ==
LOC: CHSLAB 16:16
PROVIDERS: PCP Internal Medicine; Visit Provider Internal Medicine
DX: E79.0 Hyperuricemia without signs of inflammatory arthritis and tophaceous disease (principal); M79.675 Pain in left toe(s)
CPT/HCPCS: 36415; 80053; 84550; 85025; 85652; 86140

== ENCOUNTER 2022-06-28 09:48 | Outpatient (CLI) | payer BC, SELFPAY ==
[2022-06-28 10:03] LABS: Basophils Absolute Auto 0.05 K/mm3 (0.00-0.10); Basophils Percent Auto 0.9 % (0.0-1.0); Eosinophils Absolute Auto 0.05 K/mm3 (0.02-0.50); Eosinophils Percent Auto 0.9 % (1.0-6.0); Hematocrit 46.8 % (40.0-54.0); Hemoglobin 15.3 g/dL (14.0-18.0); Immature Granulocyte Absolute 0.03 K/mm3 (0.00-0.00); Immature Granulocyte Percent A 0.5 % (0.0-0.0); Lymphocytes Absolute Auto 1.62 K/mm3 (1.10-4.50); Lymphocytes Percent Auto 28.7 % (18.0-42.0); Mean Corpuscular HGB Conc 32.7 g/dL (32.0-36.0); Mean Corpuscular Volume 88.6 fL (78.0-102.0); Monocytes Absolute Auto 0.58 K/mm3 (0.10-0.90); Monocytes Percent Auto 10.3 % (2.0-11.0); Neutrophils Absolute Auto 3.3 K/mm3 (1.7-7.2); Neutrophils Percent Auto 58.7 % (50.0-70.0); Platelet Count Result 218 K/mm3 (150-420); Red Blood Count 5.28 M/mm3 (4.70-6.10); Red Cell Distribution Width 12.5 % (11.6-14.4); White Blood Count 5.6 K/mm3 (4.8-10.8)
[2022-06-28 10:16] LABS: Add Urine Microscopic? NO; Appearance Urine Clear (Clear); Bilirubin Urine Negative (Negative); Blood Urine Negative (Negative); Color Urine Light Yellow (Yellow); Glucose Urine UA Negative (Negative); Hemoglobin A1C 5.4 % (<5.7); Ketones Urine Negative (Negative); Leukocyte Esterase Ur Negative (Negative); Nitrate Urine Negative (Negative); Protein Urine Negative (Negative); Specific Grav Ur 1.015 (1.010-1.020); Urobilinogen Urine 0.2 mg/dL (0.2-1.0)
[2022-06-28 10:40] LABS: Alanine Aminotransferase 32 U/L (16-63); Albumin Level 3.6 g/dL (3.4-5.0); Alkaline Phosphatase 56 U/L (46-116); Anion Gap 4 mmol/L (8-16); Aspartate Amino Transferase 25 U/L (15-37); Bilirubin,Total 0.6 mg/dL (0.00-1.00); Blood Urea Nitrogen 10 mg/dL (7-18); Calcium 8.9 mg/dL (8.5-10.1); Carbon Dioxide 31 mmol/L (21-32); Chloride 104 mmol/L (98-108); Cholesterol 137 mg/dL (0-200); Creatine Kinase 107 U/L (39-308); Estimated Glomerular Filt Rate > 60; Glucose 94 mg/dL (70-99); HDL Direct 36 mg/dL (40-60); LDL Cholesterol Calculated 82 mg/dL (<130); Osmolality Calculated 287 mOsm/kg (285-295); Potassium 4.6 mmol/L (3.5-5.1); Prostate Specific Antigen 1.6 ng/mL (< OR = 4.0); Sodium 139 mmol/L (136-145); Total Protein 7.6 g/dL (6.4-8.2); Triglycerides 95 mg/dL (0-150); Uric Acid 6.4 mg/dL (3.5-7.2)
== END 2022-06-28 09:49 | disposition home or self-care (01) ==
LOC: CHSLAB 09:51
PROVIDERS: PCP Internal Medicine; Visit Provider Internal Medicine
DX: E78.2 Mixed hyperlipidemia (principal); I10 Essential (primary) hypertension; R73.01 Impaired fasting glucose; E79.0 Hyperuricemia without signs of inflammatory arthritis and tophaceous disease; Z12.5 Encounter for screening for malignant neoplasm of prostate
CPT/HCPCS: 36415; 80053; 80061; 81003; 82550; 83036; 84153; 84550; 85025; G0103

== ENCOUNTER 2022-09-14 07:49 | Outpatient (CLI) | payer BC, SELFPAY ==
[2022-09-14 08:27] LABS: Anion Gap 4 mmol/L (8-16); Blood Urea Nitrogen 15 mg/dL (7-18); Carbon Dioxide 32 mmol/L (21-32); Chloride 107 mmol/L (98-108); Estimated Glomerular Filt Rate > 60; Glucose 100 mg/dL (70-99); Osmolality Calculated 296 mOsm/kg (285-295); Potassium 4.5 mmol/L (3.5-5.1); Sodium 143 mmol/L (136-145)
== END 2022-09-14 07:50 | disposition home or self-care (01) ==
LOC: CHSLAB 07:50
PROVIDERS: PCP Internal Medicine; Visit Provider Internal Medicine
DX: I10 Essential (primary) hypertension (principal)
CPT/HCPCS: 36415; 80048

== ENCOUNTER 2023-04-01 09:58 | Outpatient (CLI) | payer BC, SELFPAY ==
[2023-04-01 10:29] LABS: Appearance Urine Clear (Clear); Bilirubin Urine Negative (Negative); Blood Urine Negative (Negative); Color Urine Yellow (Yellow); Glucose Urine UA Negative (Negative); Ketones Urine Negative (Negative); Leukocyte Esterase Ur Negative (Negative); Nitrate Urine Negative (Negative); Protein Urine Negative (Negative); Specific Grav Ur >= 1.030 (1.010-1.020); Urobilinogen Urine 0.2 mg/dL (0.2-1.0); pH Urine 5.5 (5.0-8.0)
[2023-04-01 10:31] LABS: Add Urine Microscopic? NO
[2023-04-01 10:36] LABS: Creatinine Urine 235.01 mg/dL (40-278); MALB Creatinine Ratio 5.5 mg/g (0-30); Microalbumin Urine Random < 13.0 mg/L
[2023-04-01 10:43] LABS: Hemoglobin A1C 5.7 % (<5.7)
[2023-04-01 11:15] LABS: Alanine Aminotransferase 31 U/L (16-63); Albumin Level 3.5 g/dL (3.4-5.0); Alkaline Phosphatase 54 U/L (46-116); Anion Gap 8 mmol/L (8-16); Aspartate Amino Transferase 23 U/L (15-37); Bilirubin,Total 0.5 mg/dL (0.00-1.00); Blood Urea Nitrogen 18 mg/dL (7-18); Calcium 8.8 mg/dL (8.5-10.1); Carbon Dioxide 27 mmol/L (21-32); Chloride 107 mmol/L (98-108); Cholesterol 121 mg/dL (0-200); Estimated Glomerular Filt Rate > 60; Glucose 100 mg/dL (70-99); HDL Direct 30 mg/dL (40-60); LDL Cholesterol Calculated 76 mg/dL (<130); Osmolality Calculated 295 mOsm/kg (285-295); Potassium 4.7 mmol/L (3.5-5.1); Sodium 142 mmol/L (136-145); Total Protein 7.1 g/dL (6.4-8.2); Triglycerides 73 mg/dL (0-150); Uric Acid 8.1 mg/dL (3.5-7.2)
== END 2023-04-01 09:59 | disposition home or self-care (01) ==
LOC: CHSLAB 10:00
PROVIDERS: PCP Internal Medicine; Visit Provider Internal Medicine
DX: I10 Essential (primary) hypertension (principal); E78.2 Mixed hyperlipidemia; R73.01 Impaired fasting glucose; E79.0 Hyperuricemia without signs of inflammatory arthritis and tophaceous disease
CPT/HCPCS: 36415; 80053; 80061; 81003; 82043; 83036; 84550

== ENCOUNTER 2023-09-27 10:13 | Outpatient (CLI) | payer MEDICARE, OTHER, SELFPAY ==
[2023-09-27 10:30] LABS: Appearance Urine Clear (Clear); Bilirubin Urine Negative (Negative); Blood Urine Negative (Negative); Color Urine Yellow (Yellow); Glucose Urine UA Negative (Negative); Ketones Urine Negative (Negative); Leukocyte Esterase Ur Negative (Negative); Nitrate Urine Negative (Negative); Protein Urine Negative (Negative); pH Urine 7.5 (5.0-8.0)
[2023-09-27 10:33] LABS: Add Urine Microscopic? NO
[2023-09-27 10:35] LABS: Creatinine Urine 195.55 mg/dL (40-278); MALB Creatinine Ratio 6.6 mg/g (0-30); Microalbumin Urine Random < 13.0 mg/L
[2023-09-27 10:37] LABS: Hemoglobin A1C 5.6 % (<5.7)
[2023-09-27 11:34] LABS: Alanine Aminotransferase 35 U/L (16-63); Albumin Level 3.6 g/dL (3.4-5.0); Alkaline Phosphatase 51 U/L (46-116); Anion Gap 2 mmol/L (8-16); Aspartate Amino Transferase 21 U/L (15-37); Bilirubin,Total 0.7 mg/dL (0.00-1.00); Blood Urea Nitrogen 12 mg/dL (7-18); Calcium 9.2 mg/dL (8.5-10.1); Carbon Dioxide 35 mmol/L (21-32); Chloride 102 mmol/L (98-108); Cholesterol 130 mg/dL (0-200); Creatine Kinase 106 U/L (39-308); Estimated Glomerular Filt Rate 59; Glucose 102 mg/dL (70-99); HDL Direct 34 mg/dL (40-60); LDL Cholesterol Calculated 79 mg/dL (<130); Osmolality Calculated 287 mOsm/kg (285-295); Potassium 4.3 mmol/L (3.5-5.1); Prostate Specific Antigen 1.4 ng/mL (< OR = 4.0); Sodium 139 mmol/L (136-145); Total Protein 7.1 g/dL (6.4-8.2); Triglycerides 84 mg/dL (0-150)
== END 2023-09-27 10:14 | disposition home or self-care (01) ==
LOC: CHSLAB 10:17
PROVIDERS: PCP Internal Medicine; Visit Provider Internal Medicine
DX: I10 Essential (primary) hypertension (principal); R73.01 Impaired fasting glucose; Z12.5 Encounter for screening for malignant neoplasm of prostate
CPT/HCPCS: 36415; 80053; 80061; 81003; 82043; 82550; 83036; 84153; G0103

== ENCOUNTER 2023-11-28 21:18 | Emergency (ER) | payer MEDICARE, OTHER, SELFPAY ==
[2023-11-28 21:28] VITALS: BP 152/104; PULSE 67; RESP 20; TEMP 36.6; O2SAT 96
--- NOTE | 2023-11-28 21:28 | ED.SKABFB ---
HPI - Skin/Abscess/Foreign Bdy General Chief complaint: Skin/Abscess/Foreign Body Stated complaint: face laceration Time Seen by Provider: 11/28/23 21:27 Source: patient Mode of arrival: ambulatory Limitations: no limitations History of Present Illness HPI narrative: Patient is a 63-year-old male with a left frontal scalp laceration/ surgical site bleeding on Xarelto. Patient had a surgery today to remove skin cancer. He came to the ER because of continued bleeding from the site. MD complaint: laceration Onset (ago): hour(s) (5) Tetanus up to date: unsure Location: head ( Left scalp frontal) Severity: mild Severity scale (1-10): 1 Quality: burning Pain Consistency: constant Relieving factors: none Exacerbating factors: none Context: none Associated symptoms: denies other symptoms Treatments prior to arrival: none Related Data Home Medications Medication Instructions Recorded Confirmed carvedilol 12.5 mg tablet 12.5 mg PO BID 11/28/23 11/28/23 losartan 100 1 tablet PO DAILY 11/28/23 11/28/23 mg-hydrochlorothiazide 12.5 mg tablet rivaroxaban 20 mg tablet (Xarelto) 20 mg PO DAILY 11/28/23 11/28/23 Allergies Allergy/AdvReac Type Severity Reaction Status Date / Time No Known Allergies Allergy Verified 11/28/23 21:31 Review of Systems Review of Systems: All systems reviewed & are unremarkable except as noted in HPI and below Constitutional: Constitutional: Reports no additional constitutional complaints Eyes: Eyes: Reports no additional eye complaints ENT: Reports system reviewed and no additional complaints, except as documented Cardiovascular: Cardiovascular: Reports no additional cardiovascular complaints Respiratory: Respiratory: Reports no additional respiratory complaints Gastrointestinal: Gastrointestinal: Reports no additional gastrointestinal complaints Genitourinary: Genitourinary: Reports no additional male genitourinary complaints Musculoskeletal: Musculoskeletal: Reports no additional musculoskeletal complaints Integumentary/Breasts: Skin/Breast: Reports system reviewed and no additional complaints, except as docu Neurologic: Reports system reviewed and no additional complaints, except as documented Psychiatric: Psychiatric: Reports no additional psychiatric complaints Endocrine: Endocrine: Reports no additional endocrine complaints Hematologic/Lymphatic: Hematologic/Lymphatic: Reports no additional hematologic/lymphatic complaints Allergic/Immunologic: Allergic/Immunologic: Reports no additional allergic/immunologic complaints [facility] Past Medical History Medical History Hypertension Family History Family History (Updated 02/25/22 @ 00:10 by Adama Darling RN) Mother Congestive heart failure (CHF) Diabetes mellitus Hypertension Father Lung cancer Sibling Acute leukemia Coronary artery disease Social History Social History Smoking status: Former smoker Alcohol intake: never Substance use: never Spiritual care concerns: No Exam Const: General: healthy appearing Nutritional Appearance: well nourished Orientation/consciousness: patient oriented x3 HENMT: Head: normal to inspection Ears: external ears normal Face/Nose/Sinus: Normal external nose present Eyes: Conjunctivae: conjunctivae normal Pupils: Equal, round and reactive pupils present EOM: EOMs intact bilaterally Neck: Neck: normal visual inspection Chest: Chest palpation & inspection: normal inspection of the chest Resp: Effort & Inspection: normal respiratory effort and not labored Auscultation: clear to auscultation bilaterally and no crackles Cardio: Rate: regular rate Rhythm: regular rhythm Heart sounds: no murmurs GI: Inspection: non-distended Auscultation: normal bowel sounds, bowel sounds present and no hyperactive bowel sounds : General: Yes bladder normal to pa
[2023-11-28] MEDS: SILVER NITRATE (*SP) STICK 2 EACH TOPICAL (21:48)
[2023-11-28 22:00] VITALS: BP 120/81; PULSE 65; RESP 20; TEMP 36.7; O2SAT 95
== END 2023-11-28 22:02 | disposition home or self-care (01) ==
PROVIDERS: Emergency Provider Emergency Medicine; PCP Internal Medicine
DX: L76.22 Postprocedural hemorrhage of skin and subcutaneous tissue following other procedure (principal); I10 Essential (primary) hypertension; Z87.891 Personal history of nicotine dependence; Z79.01 Long term (current) use of anticoagulants
CPT/HCPCS: 12001; 99283

== ENCOUNTER 2024-01-14 11:03 | Outpatient (CLI) | payer MEDICARE, OTHER, SELFPAY ==
--- NOTE | ~2024-01-14 | XR_ITS ---
Clinical Indication: Cough PA and lateral views of the chest: Comparison: Report from prior exam dated 02/24/2022 Findings: Calcified right lung nodule is benign appearance. The lungs are otherwise clear, without ev idence of focal consolidation or pleural effusion. Cardiomediastinal silhouette is within normal sotelo its. Bones and soft tissues are unremarkable. Impression: No significant abnormality. Reviewed, dictated and finalized at location . Impression: No significant abnormality.
[2024-01-14 11:32] LABS: Hematocrit 43.1 % (37.0-46.0); Hemoglobin 14.2 g/dL (12.4-15.3); Mean Corpuscular HGB Conc 32.9 g/dL (32-36); Mean Corpuscular Hemoglobin 29.2 pg (27.0-31.0); Mean Corpuscular Volume 88.7 fL (78.0-102.0); Mean Platelet Volume 11.6 fl (8.7-11.0); Platelet Count Result 223 K/mm3 (150-420); Red Blood Count 4.86 M/mm3 (4.70-6.10); White Blood Count 6.7 K/mm3 (4.8-10.8)
[2024-01-14 12:02] LABS: Strep Group A RT-PCR NOT DETECTED (Negative)
[2024-01-14 12:12] LABS: SARS-CoV-2 RNA PCR Negative (Negative)
[2024-01-14 12:19] LABS: Influenza A QL RT-PCR Negative (Negative); Influenza B QL RT-PCR Negative (Negative); RSV RNA, RT-PCR Negative (Negative)
[2024-01-14 14:52] LABS: Band Neutrophils Percent 0 % (0-6); Basophils Percent Manual 0 % (0-1); Eosinophils Absolute Manual 0.33 K/mm3 (0.02-0.50); Eosinophils Percent Manual 5 % (1-6); Lymphocytes Percent Manual 24 % (18-44); Monocytes Absolute Manual 0.93 K/mm3 (0.1-0.90); Monocytes Percent Manual 14 % (3-9); Neutrophils Absolute Manual 3.81 K/mm3 (1.3-6.7); Neutrophils Percent Manual 57 % (46-73); Platelet Estimate Adequate (Adequate); Total Cells Counted 100
== END 2024-01-14 11:04 | disposition home or self-care (01) ==
LOC: CHSLAB 11:06
PROVIDERS: PCP Internal Medicine; Visit Provider Internal Medicine
DX: R05.9 Cough, unspecified (principal)
CPT/HCPCS: 36415; 71046; 85025; 87637; 87651

== ENCOUNTER 2024-04-19 09:26 | Outpatient (CLI) | payer MEDICARE, SELFPAY ==
[2024-04-19 09:43] LABS: Hematocrit 43.6 % (37.0-46.0); Hemoglobin 14.8 g/dL (12.4-15.3); Mean Corpuscular HGB Conc 33.9 g/dL (32-36); Mean Corpuscular Hemoglobin 29.9 pg (27.0-31.0); Mean Corpuscular Volume 88.1 fL (78.0-102.0); Mean Platelet Volume 11.6 fl (8.7-11.0); Platelet Count Result 240 K/mm3 (150-420); Red Blood Count 4.95 M/mm3 (4.70-6.10); Red Cell Distribution Width 12.7 % (11.6-14.4); White Blood Count 6.5 K/mm3 (4.8-10.8)
[2024-04-19 09:46] LABS: Appearance Urine Clear (Clear); Bilirubin Urine Negative (Negative); Blood Urine Trace-intact (Negative); Color Urine Yellow (Yellow); Glucose Urine UA Negative (Negative); Ketones Urine Negative (Negative); Leukocyte Esterase Ur Negative (Negative); Nitrate Urine Negative (Negative); Protein Urine Negative (Negative); Specific Grav Ur 1.025 (1.010-1.020); Urobilinogen Urine 0.2 mg/dL (0.2-1.0)
[2024-04-19 09:55] LABS: Add Urine Microscopic? YES; RBC Urine None seen /hpf (0-2)
[2024-04-19 09:56] LABS: Bacteria Urine Trace /hpf; Mucus Urine Few /lpf; WBC Urine None seen /hpf (0-3)
[2024-04-19 10:05] LABS: Hemoglobin A1C 5.5 % (<5.7)
[2024-04-19 10:36] LABS: Alanine Aminotransferase 26 U/L (16-63); Albumin Level 3.4 g/dL (3.4-5.0); Alkaline Phosphatase 55 U/L (46-116); Anion Gap 9 mmol/L (4-12); Aspartate Amino Transferase 19 U/L (15-37); Bilirubin,Total 0.9 mg/dL (0.00-1.00); Blood Urea Nitrogen 12 mg/dL (7-18); Calcium 8.7 mg/dL (8.5-10.1); Carbon Dioxide 28 mmol/L (21-32); Chloride 104 mmol/L (98-108); Cholesterol 133 mg/dL (0-200); Creatine Kinase 92 U/L (39-308); Estimated Glomerular Filt Rate > 60; Glucose 107 mg/dL (70-99); HDL Direct 31 mg/dL (40-60); LDL Cholesterol Calculated 88 mg/dL (<130); Osmolality Calculated 291 mOsm/kg (285-295); Potassium 4.2 mmol/L (3.5-5.1); Sodium 141 mmol/L (136-145); Triglycerides 72 mg/dL (0-150); Uric Acid 7.8 mg/dL (3.5-7.2)
== END 2024-04-19 09:27 | disposition home or self-care (01) ==
LOC: CHSLAB 09:28
PROVIDERS: PCP Internal Medicine; Visit Provider Internal Medicine
DX: I10 Essential (primary) hypertension (principal); R73.01 Impaired fasting glucose; E78.2 Mixed hyperlipidemia; E79.0 Hyperuricemia without signs of inflammatory arthritis and tophaceous disease
CPT/HCPCS: 36415; 80053; 80061; 81001; 82550; 83036; 84550; 85027

== ENCOUNTER 2024-04-23 08:52 | Outpatient (CLI) | payer MEDICARE, OTHER, SELFPAY ==
--- NOTE | 2024-05-25 11:01 | P.PCNHOL_ITS ---
Holter/Event Monitor Holter/Event Monitor Date of procedure: 04/23/24 Holter/Event Procedure: Event Monitor Indications: Dyspnea Conclusion: 1. 29 days event monitor between 04/23/24-05/22/24. There are 37 available tr ansmissions for analysis. 2. Predominant rhythm is sinus rhythm. HR range 23-160 bpm, average HR 64 bpm. HR at 23 bpm was due to sinus bradycardia with long pause on 04/26/24 at 11:59. 3. There are occasional premature supraventricular complexes with total burden of 1%. There are 7,569 episodes of atrial flutter with total burden of 18%; fastest at 160 bpm and longest lasting 2 hours and 57 minutes. 4. There are occasional premature ventricular complexes with total burden of 1%. No ventricular tachycardia. 5. There are 2 pauses greater than 2 seconds. One was 5.2 seconds on 04/26/24 at 11:59 and second episode was 3.0 seconds on 05/04/24 at 08:57, both after offset from atrial flutter to sinus rhythm. 6. Patient reports 2 episodes of symptoms of shortness of breath and symptom other than listed which demonstrate sinus bradycardia at 49 bpm and atrial flutter with PVC at 106 bpm.
== END 2024-04-23 08:53 | disposition home or self-care (01) ==
LOC: CHSCARD 08:54
PROVIDERS: PCP Internal Medicine; Visit Provider Internal Medicine
DX: R06.00 Dyspnea, unspecified (principal); R42 Dizziness and giddiness
CPT/HCPCS: 93270

== ENCOUNTER 2024-06-17 13:00 | Outpatient (CLI) | payer MEDICARE, OTHER, SELFPAY ==
--- NOTE | 2024-06-17 13:09 | ECHO_ITS ---
Patient Info Name: Nir Giron Age: 63 years : 1960 Gender: Male Ht: 72 in Wt: 289 lbs BSA: 2.63 m2 HR: 65 bpm BP: 121 / 78 mmHg Heart Rhythm: Sinus Rhythm Technical Quality: Good Exam Date: 06/17/2024 1:00 PM Exam Location: [facility] Patient Status: Outpatient Admit Date: 06/17/2024 Staff Ordering Physician: Javier Goldstein MD Irrigation Worker: Estephania Myrick RDCS Attending Provider: Javier Goldstein MD Referring Physician: Triston WARREN; Exam Type: CA echo doppler color flow Study Info Indications - dyspnea Complete two-dimensional, color flow and Doppler transthoracic echocardiogram is performed. Summary 1. Complete two-dimensional, color flow and Doppler transthoracic echocardiogram is performed. 2. Left ventricular chamber dimension is normal. 3. Left ventricular systolic function is normal, estimated at 60-65%. 4. The left ventricular diastolic function is normal. 5. E/e' 8 is minimally elevated. 6. There is trace tricuspid valve regurgitation. 7. No pulmonary hypertension, estimated pulmonary arterial systolic pressure is 24 mmHg. 8. There is trace pulmonic regurgitation. Left Ventricle E/e' 8 is minimally elevated. Left ventricular chamber dimension is normal. Left ventricular systolic function is normal, estimated at 60-65%. The left ventricular diastolic function is normal. Right Ventricle Right ventricular systolic function is normal and with normal TAPSE 4.1 cm. Right ventricular chamber dimension is normal. Left Atria Left atrial chamber dimension is normal. Right Atria Right atrial chamber dimension is normal. Aortic Valve The aortic valve is trileaflet. There is no aortic valve stenosis. There is no aortic valve regurgitation. Pulmonic Valve There is trace pulmonic regurgitation. Mitral Valve There is no mitral valve stenosis. There is no mitral valve regurgitation. Tricuspid Valve There is trace tricuspid valve regurgitation. No pulmonary hypertension, estimated pulmonary arterial systolic pressure is 24 mmHg. Pericardium/Pleural There is no pericardial effusion. Inferior Vena Cava Normal inferior vena cava with >50% collapse upon inspiration consistent with normal right atrial pressure, 5 mmHg. Aorta The aortic root size at the sinus of Valsalva is normal. Left Ventricular Outflow Tract Name Value Normal LVOT 2D LVOT Diameter 2.1 cm LVOT Doppler LVOT Peak Velocity 95 cm/s LVOT Peak Gradient 4 mmHg LVOT Mean Gradient 2 mmHg LVOT VTI 24 cm LVOT VTI/AV VTI Ratio 0.8 LVOT Stroke Volume 80 ml Pulmonic Valve Name Value Normal PV Doppler PV Peak Velocity 103 cm/s PV Peak Gradient 4 mmHg Mitral Valve Name
== END 2024-06-17 13:01 | disposition home or self-care (01) ==
LOC: CHSIMG 13:03
PROVIDERS: PCP Internal Medicine; Visit Provider Internal Medicine
DX: R06.00 Dyspnea, unspecified (principal); R42 Dizziness and giddiness
CPT/HCPCS: 93306

== ENCOUNTER 2025-04-18 07:26 | Outpatient (CLI) | payer MEDICARE, SELFPAY ==
--- OUTSIDE RECORDS SUMMARY | 2025-04-18 07:30 | XMS_ITS | Clinical Summary ---
Author Organization [facility] Address [address] [place] [address] Care Team Providers Care Burlesque Dancer Name Role Phone Javier Goldstein MD Primary Care Provider [phone] Haris Gerber MD Unavailable [phone] Allergies No known active allergies Medications aspirin 81 MG chewable tablet Chew 1 tablet (81 mg total) by mouth daily. Active sildenafil (REVATIO) 20 MG tablet Take 1 tablet (20 mg total) by mouth daily as needed. Active dabigatran (PRADAXA) 150 MG Cap Take 1 capsule (150 mg total) by mouth 2 (two) times daily. 180 capsule 4 5 Active amLODIPine (NORVASC) 2.5 MG tablet Take 1 tablet (2.5 mg total) by mouth daily. 90 tablet 4 5 Active carvedilol (COREG) 12.5 MG tablet Take 0.5 tablets (6.25 mg total) by mouth 2 (two) times daily. 90 tablet 4 5 Active losartan-hydro CHLOROthiazide (HYZAAR) 100-12.5 MG tablet Take 1 tablet by mouth daily. 90 tablet 4 5 Active flecainide (TAMBOCOR) 100 MG tablet Take 1 tablet (100 mg total) by mouth 2 (two) times daily. 60 tablet 2 5 Active flecainide (TAMBOCOR) 100 MG tablet Take 1 tablet (100 mg total) by mouth 2 (two) times daily. 60 tablet 2 5 04/11/20 25 Discontinued Active Problems Problem Noted Date Diagnosed Date Pacemaker 09/30/2024 Overview (09/30/2024): [employer] MRI [id number] dual chamber pacemaker generator 09/10/2024 - [employer] Ultipace LPA 1231-52 right atrial lead, implanted 09/10/2024 - [employer] Ultipace LPA 1231-58 RV lead implanted 09/10/2024 SSS (sick sinus syndrome) (CMS/HCC HHS/HCC) 07/06 Other persistent atrial fibrillation (CMS/HCC HH S/HCC) 11/08/2023 Mixed hyperlipidemia 11/08/2023 Essential (primary) hypertension 11/08/2023 H/O myocardial infarction, greater than 8 weeks 11/08/2023 Overview (09/30/2024): Etiology unclear - spasm versus stress cmp versus thromboembolic event Encounters Date Type Department Care Team Description 03/25/2025 1:00 AM CDT Allied Health/Nurse Visit [facility] [address] [place] [address] Haris Gerber MD from Last 3 Months Social History Tobacco Use Types Packs/Day Years Used Date Smoking Tobacco: Never Tobacco Cessation:Counseling Given: Not Answered Alcohol Use Standard Drinks/Week Comments Never 0 (1 standard drink = 0.6 oz pur e alcohol) Sex and Gender Information Value Date Recorded Sex Assigned at Not on file Legal Sex Male 9:23 PM CDT Gender Identity Not on file Sexual Orientation Not on file Last Filed Vital Signs Vital Sign Reading Time Taken Comments Blood Pressure 116/82 12/27/2024 10:28 AM CDT Pulse 67 12/27/2024 10:28 AM CDT Temperature 36.2 C (97.2 F) 09/10/2024 7:25 AM STAGE DIRECTOR Respiratory Rate 18 12/27/2024 10:2 8 AM CDT Oxygen Saturation 98% 12/27/2024 10: 28 AM CDT Inhaled Oxygen Concentration - - Weight 134.9 kg (297 lb 6.4 oz) 025 10:28 AM CDT Height 185.4 cm (6' 1) 12/27/2024 10:2 8 AM CDT Body Mass Index 39.24 12/27/2024 10:28 AM CDT Plan of Treatment Upcoming Encounters Date Type Department Care Team (Late st Contact Info) Description 07/04/2025 1:30 PM CDT Allied Health/Nurse Visit [facility] [address] [place] [address] Haris Gerber MD [address] [place] [address] 07/04/2025 1:45 PM CDT Office Visit [facility] [address] [place] [phone] Haris Gerber MD [address] [place] [address] 10/05/2025 2:15 AM STAGE DIRECTOR Allied Health/Nurse Visit [facility] [address] [place] [phone] Haris Gerber MD [address] [place] [phone] Health Maintenance Due Date Last Done Comments ASCVD Statin 1960 Colorectal Cancer Screening Colonoscopy (10 Years) 1958 Hepatitis C 1976 Pneumococcal Vaccine: 50+ Years (1 of 2 - PCV) 1977 RSV Immunization or 60+ Years (1 - Risk 60-74 years 1-dose series) 2018 Annual Medicare Wellness Visit 2023 COVID-19 Vaccine (3 - 2023-2 5 season) 2024 05/11/2021, 04/13/2021 DTaP, Tdap and Td Vaccines ( 2 - Td or Tdap) 08/03/2029 08/03/2019 Zoster Vaccines Completed 01/03/2021, 10/05/2020 Meningococcal B Vaccine Aged Out No l onger eligible based on patient's age to complete this topic Meningococcal Vaccine Aged Out No li devin eligible based on patient's age to complete this topic RSV Immunizations Under 20 Months Aged Out No longer eligible b ased on patient's age to complete this topic Medical Devices Implanted Type Area Field Broomer Device Identifier Shelf Expiration Date Model / Serial / Lot [employer] Ultipace Ra-09/10/2024 Implanted:03/2024 by Haris Gerber MD (Quantity not on file) Lead Implant [employer]ER 07/05/2027 [id number] / [id number] / [employer] Ultipace Rv-09/10/2024 Implanted:03/2024 by Haris Gerber MD (Quantity not on file) Lead Implant [employer]ER 07/05/2027 [id number] / [id number] / [employer] Mri Dr-09/10/2024 Implanted:03/2024 by Haris Gerber MD (Quantity not on file) Pacemaker GROVE PACER 12/03/2025 [id number] / [id number] / Description:DX: SSS Insurance MEDICARE [facility] Advance Directives * Full Code (Latest Code Status on File) Date Activated Date Inactivated Comments 09/10/2024 10:00 AM 09/10/2024 2:52 PM Care Teams Burlesque Dancer Relationship Specialty Start Date End Date Javier Goldstein MD [address] [place] [address] PCP - General INTERNAL MEDICINE 10/20/23 Haris Gerber MD [address] [place] [address] EP Phytopathology Teacher CLINICAL CARDIAC ELECTROPHYSIOLOGY 10/20/23
[2025-04-18 07:42] LABS: Hematocrit 39.8 % (37.0-46.0); Hemoglobin 13.0 g/dL (12.4-15.3); Immature Granulocyte Percent A 0.4 % (0.0-0.0); Lymphocytes Absolute Auto 1.63 K/mm3 (1.10-4.50); Mean Corpuscular HGB Conc 32.7 g/dL (32-36); Mean Corpuscular Hemoglobin 29.5 pg (27.0-31.0); Mean Corpuscular Volume 90.2 fL (78.0-102.0); Nucleated Red Blood Cells Absolute Auto 0.00 K/mm3 (0.00-0.00); Nucleated Red Blood Cells Perc 0.0 % (0-0.0); Platelet Count Result 199 K/mm3 (150-420); Red Blood Count 4.41 M/mm3 (4.70-6.10); White Blood Count 6.8 K/mm3 (4.8-10.8)
[2025-04-18 07:46] LABS: Add Urine Microscopic? NO; Appearance Urine Clear (Clear); Glucose Urine UA Negative (Negative); Leukocyte Esterase Ur Negative (Negative); Nitrate Urine Negative (Negative); Specific Grav Ur 1.010 (1.010-1.020)
[2025-04-18 07:56] LABS: Hemoglobin A1C 5.5 % (<5.7)
[2025-04-18 08:08] LABS: Alanine Aminotransferase 21 U/L (6-50); Albumin Level 3.7 g/dL (3.5-5.1); Alkaline Phosphatase 60 U/L (38-126); Anion Gap 4 mmol/L (4-12); Aspartate Amino Transferase 26 U/L (17-59); Bilirubin,Total 0.5 mg/dL (0.2-1.3); Blood Urea Nitrogen 15 mg/dL (9-20); Calcium 8.8 mg/dL (8.4-10.2); Carbon Dioxide 29 mmol/L (22-30); Chloride 105 mmol/L (98-107); Cholesterol 139 mg/dL (0-200); Creatine Kinase 63 U/L (55-170); Estimated Glomerular Filt Rate > 60; Glucose 94 mg/dL (65-110); HDL Direct 24 mg/dL; Magnesium 1.8 mg/dL (1.6-2.3); Osmolality Calculated 286 mOsm/kg (285-295); Potassium 4.8 mmol/L (3.4-5.0); Sodium 138 mmol/L (137-145); Total Protein 6.7 g/dL (6.3-8.2); Triglycerides 143 mg/dL (<150)
[2025-04-18 08:21] LABS: NT Pro B Type Natriuretic Pept 243 pg/mL (19.9-100)
[2025-04-18 08:25] LABS: Free T3 4.41 pg/mL (2.18-3.98)
[2025-04-18 08:29] LABS: Free T4 Free Thyroxine 1.05 ng/dL (0.78-2.19)
[2025-04-18 08:43] LABS: Thyroid Stimulating Hormone 4.150 uIU/mL (0.465-4.680)
== END 2025-04-18 07:27 | disposition home or self-care (01) ==
LOC: CHSLAB 07:29
PROVIDERS: PCP Internal Medicine; Visit Provider Internal Medicine
DX: E78.2 Mixed hyperlipidemia (principal); R73.01 Impaired fasting glucose; E79.0 Hyperuricemia without signs of inflammatory arthritis and tophaceous disease; I48.19 Other persistent atrial fibrillation; I11.0 Hypertensive heart disease with heart failure
CPT/HCPCS: 36415; 80053; 80061; 81003; 82550; 83036; 83735; 83880; 84439; 84443; 84481; 85025